=== PATIENT | female | born 1945 | race Caucasian/White ===

== ENCOUNTER 2017-07-08 23:33 | Emergency (ER) | payer MEDICARE, BC ==
[2015-02-02 00:06] VITALS: BMI 35.0
[~2017-07-08 23:33] MED LIST: BAYER CHEWABLE81 MG PO; DYAZIDE 37.5/251 CAP PO; ESTRACE 0.5 MG0.5 MG PO; METOPROLOL TART50 MG PO; PLAVIX75 MG PO; ZOCOR40 MG PO
== END 2017-07-09 00:10 | disposition home or self-care (01) ==
LOC: D.ER 23:33
DX: I48.91 Unspecified atrial fibrillation (principal); Z95.0 Presence of cardiac pacemaker

== ENCOUNTER → 2019-01-14 09:32 | Outpatient (CLI) | payer MEDICARE, BC ==
[2015-02-02 00:06] VITALS: BMI 35.0
--- NOTE | 2019-01-16 14:51 | EC ---
PATIENT:MINDY HUFFMAN DATE OF SERVICE: 01/14/19 SEX: F MEDICAL RECORD: [id number] DATE OF : 45 LOCATION:D[facility] AGE OF PATIENT: 73 ADMISSION DATE: 01/14/19 REFERRING PHYSICIAN: INTERPRETING PHYSICIAN: LAZARO ARREOLA MD ECHOCARDIOGRAM REPORT ECHO CHARGES 4 ECHO COMPLETE Date: 01/14/19 CLINICAL DIAGNOSIS: AFIB, HX OF TR,MR,AI,PI,PACER,HTN ECHOCARDIOGRAPHIC MEASUREMENTS (adult normal given) AC root (d.<3.7cm) 3.7 cm LV Septum d (<1.2 cm> 1.7 cm Valve Excursion 1.2 cm LV Septum (systole) 2.2 cm Left Atria (s.<4.0cm> 4.7 cm LVPW d(<1.2cm) 1.8 cm RV (d.<2.3cm) 3.7 cm LVPW (sytole) 2.2 cm LV diastole(<5.6CM) 5.4 cm MV E-F(>70mm/sec) cm LV systole 3.5 cm LVOT Diameter 1.9 cm MV exc.(>10mm) 1.6 cm Est.ejection fraction (50-75%) % DOPPLER: LVIT cm/sec A 48.0 cm/sec E 78.0 cm/sec LA cm/sec RVSP 16 mmHg LVOT 103 cm/sec AOP1/2T 442 m/s Asc. Ao 133 cm/sec RVOT 86 cm/sec RA cm/sec PA 100 cm/sec AV Gradient Peak 7.02 mmHg AV Mean 3.13 mmHg AV Area 2.5 cm MV Gradient Peak 4.42 mmHg MV Mean 1.64 mmHg MV Area cm COMMENTS: Small Battery Plate Assembler: 2 TEVIN MG Waste Management Engineer: 3 Dr. Ovalle TAPE# PACS Pericardial Effusion N DATE OF SERVICE: Adequate 2D echo, color flow, spectral Doppler, and M-mode. LVH is present. LV internal dimensions are normal. Wall motion is normal. EF is greater than or equal to 55%. Aortic valve is tricuspid. No evidence of stenosis by Doppler interrogation. Left atrium is normal. Mitral valve shows no prolapse. Trace MR. Right-sided chambers grossly normal. Trace TR. TRANSINT:[id number] Voice Confirmation ID: [id number] DOCUMENT ID: [id number] ECHOCARDIOGRAM REPORT [id number] MINDY HUFFMAN,LAZARO Kirkpatrick MD at 1451 CC: [id number] DICTATION DATE: 01/15/19 1418 MACHINE PRECISION ETCHER: 01/15/19 1600 DEP CLI 01/14/19 [place] [id number]
== END | disposition home or self-care (01) ==
LOC: D.HCCARDIO 09:32
PROVIDERS: ATTEND Internal Medicine Interventional Cardiology
DX: I48.91 Unspecified atrial fibrillation (principal)

== ENCOUNTER → 2019-01-30 10:59 | Outpatient (CLI) | payer MEDICARE, BC ==
[2015-02-02 00:06] VITALS: BMI 35.0
== END | disposition home or self-care (01) ==
LOC: D.US 10:59
PROVIDERS: ATTEND Internal Medicine Interventional Cardiology
DX: R42 Dizziness and giddiness (principal)

== ENCOUNTER → 2019-03-14 07:56 | Outpatient (CLI) | payer MEDICARE, BC | END | disposition home or self-care (01) | LOC: D.CT 07:56 | DX: R42 Dizziness and giddiness (principal); R93.89 Abnormal findings on diagnostic imaging of other specified body structures ==

== ENCOUNTER 2019-10-30 11:46 | Emergency (ER) | payer MEDICARE, BC ==
[~2019-10-30] VITALS: Ht 167.6 cm; Wt 78.2 kg
[2019-10-30 11:56] VITALS: Ht 167.6 cm; Wt 78.2 kg
[2019-10-30 12:22] LABS: BASOPHILS 2.7 % (0-2); EOSINOPHILS 0.5 % (0-7); HEMATOCRIT 41.9 % (36.0-48.0); HEMOGLOBIN 13.6 g/dL (12-16); IMMATURE GRANULOCYTES 0.7 % (0-5); LYMPHOCYTES 16.1 % (15-50); MCH 29.1 pg (26.0-34.0); MCHC 32.5 g/dL (31.0-37.0); MCV 89.5 fL (80.0-100.0); MEAN PLATELET VOLUME 9.3 fL (7.4-10.4); MONOCYTES 4.9 % (2-11); NEUTROPHILS 75.1 % (40-80); RBC 4.68 10x6/uL (4.00-5.40); RDW 14.5 % (11.5-14.5); WBC 14.6 10x3/uL (4.8-10.8)
[2019-10-30] MEDS ORDERED: BETAPACE 80 MG80 MG PO (12:22)
[2019-10-30] MEDS ORDERED: ZOCOR20 MG PO (12:23)
[2019-10-30 12:36] LABS: CALC OSMOLALITY 280 mosm/kg (275-300); CALCIUM 8.7 mg/dL (8.5-10.1); CHLORIDE - SERUM 101 mmol/L (98-107); CREATININE - SERUM 1.2 mg/dL (0.6-1.3); GLUCOSE 142 mg/dL (74-106); POTASSIUM - SERUM 3.8 mmol/L (3.5-5.1); SODIUM 138 mmol/L (136-145); UREA NITROGEN 20 mg/dL (7-18); eGFR NON AFRICAN AMERICAN 46 mL/min (90-120)
[2019-10-30 12:44] LABS: APTT 36.3 SECONDS (22.8-39.4); INR 1.06 (0.85-1.17); PROTIME 13.7 SECONDS (11.6-15.0)
[2019-10-30 12:50] LABS: ALBUMIN 3.2 g/dL (3.4-5.0); ALKALINE PHOSPHATASE 90 U/L (46-116); ALT (SGPT) 30 U/L (10-68); BILIRUBIN - TOTAL 0.59 mg/dL (0.2-1.3); CKMB 0.8 U/L (0.0-3.6); CREATINE KINASE 31 UL (21-215); MAGNESIUM - SERUM 1.2 mg/dL (1.8-2.4); PROTEIN - SERUM 7.3 g/dL (6.4-8.2); TROPONIN-I < 0.017 ng/mL (0.000-0.060)
[2019-10-30 12:51] LABS: PLATELET COUNT 339 10x3/uL (130-400)
[2019-10-30 13:40] LABS: APPEARANCE CLEAR (CLEAR); BILIRUBIN NEGATIVE (NEGATIVE); COLOR YELLOW (YELLOW); GLUCOSE NEGATIVE (NEGATIVE); KETONE NEGATIVE (NEGATIVE); NITRITE NEGATIVE (NEGATIVE); PROTEIN TRACE mg/dL (NEGATIVE); SPECIFIC GRAVITY 1.015 (1.005-1.020); UROBILINOGEN NORMAL (NORMAL)
[2019-10-30 13:41] LABS: BACTERIA FEW /hpf (NEGATIVE); EPITHELIAL CELL CAST OCC /lpf (NONE SEEN); EPITHELIAL CELLS OCC /hpf (0-5); GRANULAR CAST OCC /lpf (NONE SEEN); RED CELLS - URINE OCC /hpf (0-5)
[2019-10-30] MEDS ORDERED: LEVOFLOXACIN500 MG PO (15:55)
[2019-10-30] MEDS ORDERED: MACROBID100 MG PO (15:55)
[2019-10-30 16:35] VITALS: BP 116/77
== END 2019-10-30 17:36 | disposition home or self-care (01) ==
LOC: D.ER 11:46
PROVIDERS: Family Medicine
DX: R55 Syncope and collapse (principal); I48.0 Paroxysmal atrial fibrillation; D72.829 Elevated white blood cell count, unspecified; R53.81 Other malaise; R53.83 Other fatigue; R00.0 Tachycardia, unspecified; Z95.810 Presence of automatic (implantable) cardiac defibrillator; Z95.1 Presence of aortocoronary bypass graft; I48.91 Unspecified atrial fibrillation; J44.9 Chronic obstructive pulmonary disease, unspecified; K21.9 Gastro-esophageal reflux disease without esophagitis

== ENCOUNTER → 2019-11-04 09:16 | Outpatient (CLI) | payer MEDICARE, BC ==
[2019-10-30 11:56] VITALS: BMI 27.8
--- NOTE | ~2019-11-04 | EC ---
PATIENT:MINDY HUFFMAN DATE OF SERVICE: 11/04/19 SEX: F MEDICAL RECORD: [id number] DATE OF : [birth year] LOCATION:[facility] AGE OF PATIENT: 74 ADMISSION DATE: 11/04/19 REFERRING PHYSICIAN: INTERPRETING PHYSICIAN: LAZARO ARREOLA MD ECHOCARDIOGRAM REPORT ECHO CHARGES 4 ECHO COMPLETE Date: 11/04/19 CLINICAL DIAGNOSIS: SYNCOPE/A-FIB H/O CAD/HTN ECHOCARDIOGRAPHIC MEASUREMENTS (adult normal given) AC root (d.<3.7cm) 3.5 cm LV Septum d (<1.2 cm> 1.6 cm Valve Excursion 1.9 cm LV Septum (systole) 2.2 cm Left Atria (s.<4.0cm> 5.6 cm LVPW d(<1.2cm) 1.3 cm RV (d.<2.3cm) 2.4 cm LVPW (sytole) 1.8 cm LV diastole(<5.6CM) 5.9 cm MV E-F(>70mm/sec) cm LV systole 4.5 cm LVOT Diameter 2.1 cm MV exc.(>10mm) cm Est.ejection fraction (50-75%) % DOPPLER: LVIT cm/sec A 49.0 cm/sec E 65.0 cm/sec LA cm/sec RVSP 38.0 mmHg LVOT 74.0 cm/sec AOP1/2T m/s Asc. Ao 100 cm/sec RVOT 47.0 cm/sec RA cm/sec PA 77.0 cm/sec AV Gradient Peak 3.9 mmHg AV Mean 2.1 mmHg AV Area 1.9 cm MV Gradient Peak 3.6 mmHg MV Mean 1.5 mmHg MV Area cm COMMENTS: OP - HC Field Instructor: 1 DAVIE DANELLE Steward/Stewardess Chief Cargo Vessel: 3 Dr. Ovalle TAPE# PACS Pericardial Effusion N DATE OF SERVICE: Adequate 2-D echo, Color-Flow and Spectral Doppler, and M-mode LVH is present. LV internal dimensions in the upper limits of normal. LV appears to be mildly globally hypo with EF mildly reduced 40% to 45%. Aortic valve is tricuspid. No evidence of stenosis with Doppler interrogation. Trivial AI on color flow imaging. Left atrium is dilated 5.6 cm. Mitral valve shows no prolapse. Trace MR. Right-sided chambers are grossly normal. Moderate TR. ECHOCARDIOGRAM REPORT [id number] MINDY HUFFMAN TRANSINT:[id number] Voice Confirmation ID: [id number] DOCUMENT ID: [id number] LAZARO ARREOLA MD CC: [id number] DICTATION DATE: 11/05/191452 [employer] DIRECTOR: 11/05/191951 DEP CLI 11/04/19 [place] [id number] [place] [id number]
[~2019-11-04 09:16] MED LIST changes: +BETAPACE 80 MG80 MG PO; +LEVOFLOXACIN500 MG PO; +MACROBID100 MG PO; +ZOCOR20 MG PO
== END | disposition home or self-care (01) ==
LOC: D.HCCECHO 09:16
PROVIDERS: ATTEND Internal Medicine Interventional Cardiology
DX: I10 Essential (primary) hypertension (principal)

== ENCOUNTER 2019-11-10 19:33 | Inpatient (IN) | payer MEDICARE, BC ==
[~2019-11-10] VITALS: Ht 167.6 cm; Wt 0.5 kg
[2019-11-10 19:48] VITALS: BP 127/89
[2019-11-10] MEDS ORDERED: ELIQUIS5 MG PO (19:49)
[2019-11-10 19:58] LABS: APPEARANCE CLEAR (CLEAR); BILIRUBIN NEGATIVE (NEGATIVE); COLOR YELLOW (YELLOW); GLUCOSE NEGATIVE (NEGATIVE); KETONE NEGATIVE (NEGATIVE); NITRITE NEGATIVE (NEGATIVE); PROTEIN TRACE mg/dL (NEGATIVE); SPECIFIC GRAVITY 1.015 (1.005-1.020); UROBILINOGEN NORMAL (NORMAL)
[2019-11-10 20:00] LABS: WHITE CELLS - URINE 25-50 /hpf (NEGATIVE)
[2019-11-10 20:01] LABS: BACTERIA MODERATE /hpf (NEGATIVE)
[2019-11-10 20:02] LABS: MUCUS <1+ /lpf (NONE SEEN); RED CELLS - URINE 0-5 /hpf (0-5)
[2019-11-10 20:17] VITALS: BP 135/95
[2019-11-10 20:19] LABS: BASOPHILS 3.3 % (0-2); EOSINOPHILS 1.1 % (0-7); HEMATOCRIT 32.3 % (36.0-48.0); HEMOGLOBIN 10.7 g/dL (12-16); IMMATURE GRANULOCYTES 0.4 % (0-5); LYMPHOCYTES 19.8 % (15-50); MCHC 33.1 g/dL (31.0-37.0); MCV 87.5 fL (80.0-100.0); MONOCYTES 6.5 % (2-11); NEUTROPHILS 68.9 % (40-80); PLATELET COUNT 334 10x3/uL (130-400); RBC 3.69 10x6/uL (4.00-5.40); RDW 14.3 % (11.5-14.5); WBC 13.5 10x3/uL (4.8-10.8)
[2019-11-10 20:27] LABS: APTT 45.9 SECONDS (22.8-39.4); INR 1.22 (0.85-1.17); PROTIME 15.3 SECONDS (11.6-15.0)
[2019-11-10 20:33] LABS: CALC OSMOLALITY 280 mosm/kg (275-300); CALCIUM 8.1 mg/dL (8.5-10.1); CHLORIDE - SERUM 104 mmol/L (98-107); CREATININE - SERUM 1.1 mg/dL (0.6-1.3); GLUCOSE 104 mg/dL (74-106); POTASSIUM - SERUM 3.6 mmol/L (3.5-5.1); SODIUM 138 mmol/L (136-145); UREA NITROGEN 26 mg/dL (7-18); eGFR NON AFRICAN AMERICAN 51 mL/min (90-120)
[2019-11-10 20:44] LABS: ALBUMIN 2.9 g/dL (3.4-5.0); ALKALINE PHOSPHATASE 93 U/L (30-120); ALT (SGPT) 26 U/L (10-68); BILIRUBIN - TOTAL 0.26 mg/dL (0.2-1.3); CKMB 0.5 U/L (0.0-3.6); CREATINE KINASE 33 UL (21-215); MAGNESIUM - SERUM 1.5 mg/dL (1.8-2.4); PROTEIN - SERUM 6.5 g/dL (6.4-8.2); TROPONIN-I 0.021 ng/mL (0.000-0.060)
--- NOTE | 2019-11-10 20:48 | NUR ---
EPR INFORNED PT RATE CHANGED PRIOR TO ADMIN OF IV VERAPMIL, MED NOT GIVEN.
[2019-11-10 20:49] VITALS: BP 83/60
[2019-11-10 21:00] VITALS: BP 127/68
[2019-11-10 21:30] VITALS: BP 114/30
[2019-11-10 22:15] VITALS: BP 116/73
--- NOTE | 2019-11-10 23:00 | NUR ---
RECEIVED REPORT FROM VLADISLAV RN (ER), [facility], HISTORY AND MEDS REVIEWED. PLACED ON [id number], [id number], PROVIDED A DRINK AND SANDWICH, BED IS LOW, SRX1, CALL LIGHT IN REACH, DAUGHTER AT BEDSIDE, WILL CONTINUE PLAN OF CARE
[2019-11-11] VITALS: BP 103/58
[2019-11-11 03:27] LABS: CKMB 1.1 U/L (0.0-3.6); CREATINE KINASE 63 UL (21-215); TROPONIN-I 0.017 ng/mL (0.000-0.060)
[2019-11-11 04:00] VITALS: BP 99/50
[2019-11-11 04:56] VITALS: BP 103/58
[2019-11-11 08:29] LABS: CKMB 1.7 U/L (0.0-3.6); CREATINE KINASE 101 UL (21-215); TROPONIN-I < 0.017 ng/mL (0.000-0.060)
[2019-11-11 08:44] LABS: T4 THYROXIN - FREE 1.07 ng/dL (0.76-1.46); THYROID STIMULATING HORMONE 1.5 uIU/mL (0.36-3.74)
[2019-11-11 08:59] VITALS: Ht 167.6 cm; Wt 0.5 kg
--- NOTE | 2019-11-11 09:42 | NUR ---
CALLED DR. RILEY AND INFORMED HIM ABOUT PT HAVING HIP PAIN AND WANTS A MUSCLE RELAXER. ALSO INFOMED HIM ABOUT CARDIOLOGY STATING THAT PT IS STABLE TO DISCHARGE FROM CARDIO STANDPOINT. NEW ORDER FOR LUMBER SPINE SERIES AND TO GET RESULT FROM PREVIOUS UA DONE IN ER ON LAST VISIT.
[2019-11-11 09:54] VITALS: BP 118/42
--- NOTE | 2019-11-11 11:25 | NUR ---
RESULTS FOR LUMBAR SPINE SERIES CALLED IN TO LORENA RILEY NURSE.
--- NOTE | 2019-11-11 11:55 | NUR ---
RECEIVED CALL BACK FROM DR. ROSEMARY CARRILLO'S NURSE. NEW ORDER FOR PT TO D/C HOME ON CURRENT MEDICATIONS AND START MACROBID 100MG BID X7 DAYS FOR UTI. F/U WITH OFFICE IN 1 WEEK.
[2019-11-11] MEDS ORDERED: MACROBID100 MG PO (12:38)
--- NOTE | 2019-11-11 12:43 | NUR ---
PER KIMANI MÉNDEZ APRN. START VERAPAMIL 120MG BID AND STOP METOPROLOL.
[2019-11-11] MEDS ORDERED: VERELAN120 MG PO (12:44)
--- NOTE | 2019-11-11 13:28 | NUR ---
[id number] VERBAL AND WRITTEN DISCHARGE TEACHING TO PT AND DAUGHTER, BOTH VERBALIZED UNDERSTANDING REGARDING TEACHING. D/C RT FA IV WITH CATHETER TIP INTACT. PT WHEELED DOWN TO FRONT DOOR WITH ALL BELONGINGS, ACCOMPANIED BY DAUGHTER, NAD NOTED.
--- NOTE | 2019-11-11 16:49 | MORECARE ---
CASE MANAGEMENT DISCHARGE SUMMARY PATIENT: MINDY HUFFMAN UNIT: [id number] ADM DATE: 11/10/19 AGE: 74 : [birth year] SEX: F ROOM/BED: D.1644 AUTHOR: GEORGEDOC PHYSICIAN: REFERRING PHYSICIAN: ANUSHKA RILEY MD DATE OF SERVICE: 11/11/19 Discharge Plan Patient Name: MINDY HUFFMAN Facility: [facility]:[place] : 1945 Planned Disposition: Home Anticipated Discharge Date: 11/11/19 Discharge Date: 11/11/2019 Expected LOS: 1 Initial Reviewer: [id number] Initial Review Date: 11/11/2019 Generated: 11/11/19 5:49 pm Comments DCP- Discharge Planning Updated by [email or web address]: Dallas Barron on 11/11/19 3:[address] Patient Name: MINDY HUFFMAN Admission Status: ER Accout number: [id number] Admission Date: 11-10-2019 : 1945 Admission Diagnosis: Attending: ANUSHKA RILEY Current LOS: 1 Anticipated DC Date: 11-11-2019 Planned Disposition: Home Primary Insurance: MEDICARE A & B Discharge Planning Comments: CM MET WITH PT IN ROOM TO DISCUSS DISCHARGE PLANNING AND NEEDS. PT REPORTS LIVING AT HOME INDEPENDENTLY WITH HER SPOUSE. PT HAS NO MEDICAL EQUIPMENT AND NO OUTSIDE SERVICES ASSISTING IN THE HOME. CM DISCUSSED AVAILABILITY OF HOME HEALTH, REHAB SERVICES AND MEDICAL EQUIPMENT. PT DENIES DISCHARGE NEEDS, REPORTS HER SPOUSE WILL PICK HER UP FOR DISCHARGE HOME. IMPORTANT MESSAGE FROM MEDICARE PROVIDED AND EXPLAINED. Facilities Clerk: Dallas Barron DCPIA - Discharge Planning Initial Assessment Updated by [id number]: Dallas Barron on 11/11/19 4:42 pm * Is the patient Alert and Oriented? Yes * How many steps to enter\exit or inside your home? * PCP DR. RILEY * Pharmacy [facility] [address] * Preadmission Environment Home with Family * ADLs Independent * Equipment None * Other Equipment NO MEDICAL EQUIPMENT PROVIDER PREFERENCE * List name and contact numbers for known caregivers / representatives who currently or will assist patient after discharge: YANIRA HUFFMAN, SPOUSE, * Verbal permission to speak to the caregivers and representatives has been obtained from the patient. N/A * Community resources currently utilized None * Please name any agencies selected above. NONE * Additional services required to return to the preadmission environment? No * Can the patient safely return to the preadmission environment? Yes * Has this patient been hospitalized within the prior 30 days at any hospital? No Coverage Notice Reviewer: [id number] Wanda Barron Notice Issued Date-Time: 11/11/2019 12:20 Notice Type: IM Discharge Notice Notice Delivered To: Patient Relationship to Patient: Apprentice Cook Name: Delivery Method: HAND - Hand Delivered Kassie Days: Prior Verbal Notification: Recipient Understood Notice: Yes Recipient Signature: Yes Med Rec Note Co-signed by Attending: Coverage Notice Comment: Patient Name: MINDY HUFFMAN Page [id number] at 1649 All edits/amendments must be made on the electronic document DICTATION DATE: 11/11/191648 [employer] FORMER SUPERVISOR: BENITEZ 11/11/191648 RPT#: [id number] DC DATE:11/11/19 STATUS: DIS IN [facility] [address] [place] [address] END OF REPORT
--- NOTE | 2019-11-17 16:00 | HP ---
PATIENT: MINDY HUFFMAN MEDICAL RECORD: [id number] ACCOUNT: [id number] LOCATION:[address] : [birth year] ADMISSION DATE: 11/10/19 PCP: ANUSHKA RILEY MD HISTORY AND PHYSICAL EXAMINATION REASON FOR ADMISSION: Shortness of breath with fast heart rate. HISTORY OF PRESENT ILLNESS: The patient is a 74-year-old female with history of intermittent atrial fibrillation, sick sinus syndrome and coronary artery disease. She apparently had a syncopal episode on October 30 of this year at home, was brought in by ambulance. She was in sinus rhythm, rate of 112 at that time, was seen by cardiology. Her sotalol was increased by half a tab b.i.d. and she was placed on metoprolol. She also had a UTI at that time. She was discharged on nitrofurantoin and Levaquin. She had follow up with cardiology and medications were adjusted. She has been having some intermittent fast heart rates since last night, had increasing symptoms of palpitations. Her daughter, who is a nurse, felt pulse in excess of 150 beats a minute and irregular. She had recently been increased sotalol to 120 mg every 12 hours and metoprolol 25 mg daily. She is post-CABG and has 2 stents in the past as well as pacemaker placement. On arrival to the ED, her pulse was in sinus rhythm at 86 with temperature 98.4, blood pressure 130/78. EKG showed old inferior CT, AFib with RVR. Second EKG one hour after p.o. diltiazem rate was 71, she to became hypotensive. For that reason, she has been now readmitted to the hospital. Denies any recent severe chest pain with positive dyspnea on exertion. PAST MEDICAL HISTORY: CAD post-CABG and stents, atrial fibrillation, sick sinus syndrome last echo with EF 40% to 45% and global hypokinesis. Urinary tract infection, aortic stent graft, peripheral vascular disease with stents in both lower extremities, COPD, GERD. PAST SURGICAL HISTORY: CABG, multiple stent placement as above, bladder suspension, hysterectomy. FAMILY HISTORY: Parents , had hypertension. SOCIAL HISTORY: Smoking history. No alcohol use. CURRENT MEDICATIONS: Sotalol 120 mg b.i.d., Eliquis 5 mg p.o. daily, Plavix 75 mg p.o. daily, metoprolol tartrate 25 mg p.o. daily, Zocor 20 mg with evening meal, aspirin 81 mg a day, triamterene 1 p.o. every morning. ALLERGIES: KEFLEX CAUSING HIVES. PHYSICAL EXAMINATION: VITAL SIGNS: Temperature 98.4 Fahrenheit, pulse 86 and regular, respirations 20, blood pressure 130/70, O2 sat 99% on room air. HEAD: Normocephalic. EYES: Clear. NECK: No bruits appreciated. CHEST: Distant breath sounds without wheezes or rales. HEART: Currently regular rate without gallop. ABDOMEN: Soft, nontender. EXTREMITIES: No CC&E. MUSCULOSKELETAL: She has lumbago with mild sciatica on the left leg at 45 HISTORY AND PHYSICAL [id number] HUFFMAN,MINDY J degrees. INTEGUMENT: Shows multiple bruises on her forearms. POWER REACTOR OPERATOR: Deferred. NEUROLOGIC: The patient oriented to person, place and time. No obvious motor or sensory deficits. Gait was not tested. LABORATORY DATA: EKG shows AFib with RVR, old inferior CT. BMP is normal. Magnesium was low at 1.5, replaced in the ED. Cardiac enzymes are negative times 1. H&H of 10.7 and 32.3 respectively. UA shows pyuria and bacteriuria. Chest x-ray shows no acute cardiopulmonary disease, coronary stents are seen on the inferior right heart border. IMPRESSION: 1. Paroxysmal atrial fibrillation with rapid ventricular response, symptomatic. 2. Coronary artery disease. 3. Urinary tract infection. 4. Hyperlipidemia. 5. Sick sinus syndrome, pacemaker, peripheral vascular disease, recent melena, on Eliquis. PLAN: The patient is currently in sinus rhythm. Continue to monitor. Cardiology consult. We will need to decide which is the safest anticoagulant for her, we will add a PPI at this time. Further workup pending clinical course. TRANSINT:[id number] Voice Confirmation ID: [id number] DOCUMENT ID: [id number] ANUSHKA RILEY MD at 1600 CC: [id number] DICTATION DATE: 11/11/19 0756 PREFITTER: 11/11/19 1104 DIS IN 11/11/19 [facility] [address] [place] [address]
== END 2019-11-11 13:36 | disposition home or self-care (01) | DRG 309 ==
LOC: D.ER 19:33 → D.M2 21:19
PROVIDERS: Emergency Medicine; ADMIT Family Medicine; ATTEND Family Medicine
DX: I48.0 Paroxysmal atrial fibrillation (principal); N39.0 Urinary tract infection, site not specified; I25.10 Atherosclerotic heart disease of native coronary artery without angina pectoris; E78.5 Hyperlipidemia, unspecified; I73.9 Peripheral vascular disease, unspecified; K21.9 Gastro-esophageal reflux disease without esophagitis; J44.9 Chronic obstructive pulmonary disease, unspecified; I42.9 Cardiomyopathy, unspecified; M54.42 Lumbago with sciatica, left side; Z95.0 Presence of cardiac pacemaker; Z87.891 Personal history of nicotine dependence

== ENCOUNTER 2020-01-08 11:16 | Outpatient (CLI) | payer MEDICARE, BC ==
[~2020-01-08] VITALS: Ht 167.6 cm; Wt 75.0 kg
--- NOTE | ~2020-01-08 | HEMODYNAMI ---
PATIENT:MINDY HUFFMAN MEDICAL RECORD: [id number] : 45 [place]:[facility] ADMISSION DATE: 01/08/20 Generatedon:01/08/202014:39 Patient name: MINDY HUFFMAN Patient #: [id number] SSN: [id number] : 1945 Date of study: 01/08/2020 Page: Of Hemodynamic Procedure Report Patient Data Patient Demographics Procedure consent was obtained First Name: MINDY Gender: Female Last Name: ARMIDA : 1945 Middle Initial: J Age: 74 year(s) Patient #: [id number] Race: Unknown SSN: [id number] Additional ID: [id number] Contact details Address: [address] [place] [address] [employer] State: [place] City: [place] Zip code: [address] Past Medical History Allergies Allergen Reaction Date Comments Reported Other allergy 01/08/2020 Keflex, Simvastatin Admission Admission Data Admission Date: 01/08/2020 Admission Time: 11:16 Arrival Date: 01/08/2020 Arrival Time: 0:00 Admit Source: Other Insurance Payor: Medicare, Private health insurance HIC #: [id number] Height (in.): 65.75 BSA: 1.84 (m2) Height (cm.): 167 BMI: 26.89 (kg/m2) Weight (lbs.): 165.35 Weight (kg.): 75 Lab Results Lab Result Date: 01/08/2020 Lab Result Time: 0:00 Biochemistry Name Units Result Min Max BUN mg/dl 19 --(----)*- 7 18 Creatinine mg/dl 1.3 --(---*)-- 0.6 1.3 eGFR ml/min 42 *-(----)-- 90 120 NONAFRICAN CBC Name Units Result Min Max Hemoglobin g/dl 11.1 *-(----)-- 13.5 17.5 Procedure Procedure Types Cath Procedure Diagnostic Procedure [facility] w/Coronaries w/Grafts Aortic Root Angiography Sedation Charges Moderate Sedation up to 30 minutes PCI Procedure AMI/SVG/TRUCK DRIVER HELPER PTCA or Stent SVG-BMS/DORIS Initial Hemochron ACT Test Procedure Description Procedure Date Procedure Date: 01/08/2020 Procedure Start Time: 13:51 Procedure End Time: 14:35 Procedure Staff Name Function Bashir Alvarez MD Performing Physician Destinee Barraza RT Monitor Debra Mccray RT Scrub Katie Cortes RN Nurse Procedure Data Cath Procedure Fluoroscopy Diagnostic fluoroscopy Total fluoroscopy Time: 8.4 time: 8.4 min min Diagnostic fluoroscopy Total fluoroscopy dose: 991 dose: 991 mGy mGy Contrast Material Contrast Material Type Amount (ml) Isovue 300 148 Entry Location Entry Primary Successful Side Size Upsize Upsize 2 Entry Closure S uccessful Closure Location (Fr) 1 (Fr) (Fr) Remarks Device Remarks Femoral Right 4 Fr 5 Fr 6 Fr exchanged Exoseal artery Mid-Length with amplatz wire Estimated blood loss: 10 ml Diagnostic catheters Device Type Used For End Catheter Placement MULTIPACK JL 4.0 5Fr Procedure catheter MULTIPACK 3DRC 5Fr Procedure catheter MULTIPACK Pigtail 5 Fr Ventriculography catheter Procedure Complications No complications Procedure Medications Medication Administration Route Dosage Oxygen etCO2 Nasal cannula 2 l/min Lidocaine 2% added to field 20 Heparin Flush Bag added to field 2 bags (1000units/500ml NS) 0.9% NaCl I.V. 100 ml/hr Versed I.V. 1 mg Fentanyl I.V. 50 mcg Versed I.V. 1 mg Fentanyl I.V. 50 mcg Versed I.V. 1 mg Versed I.V. 1 mg Fentanyl I.V. 50 mcg Heparin Bolus I.V. 4000 units Fentanyl I.V. 50 mcg Hemodynamics Rest BSA: 1.84 (m2) HGB: 11.1 (g/dl) O2 Consumption: Estimated: 160.84 (ml/min) O2 Co nsumption indexed: Estimated:87.41 (ml/min/m) Heart Rate: 60 (bpm) Pressure Samples Time Site Value (mmHg) Purpose Heart Use Rate(bpm) 14:05 LV 116/9,13 Snapshot 64 14:05 AO 116/57(83) Pullback 61 14:05 LV 113/17,58 Pullback 61 Gradients Valve Time Site 1 Site 2 Mean SEP/DFP Peak To Heart Use (mmHg) (sec/min) Peak Rate (mmHg) (bpm) Aortic 14:05 LV AO 0 9 0 61 113/17,58 116/57(83) Calculations Valve P-P Mean Valve Index Valve Source Name Gradient Area Flow (cm2) Aortic 0 0 0 0 Snapshots Pre Cath Intra NCS Post Cath Vital Signs Time Heart Resp SPO2 etCO2 NIBP (mmHg) Rhythm Pain Sedation Rate (ipm) (%) (mmHg) Status Level (bpm) 13:36:00 60 22 94 0 147/68(103) NSR 0 (11) 10(A) , No pain 13:40:16 58 17 98 23.2 131/68(110) NSR 0 (11) 10(A) , No pain 13:44:32 60 15 94 0 120/61(81) NSR 0 (11) 10(A) , No pain 13:48:44 60 14 99 9.7 130/58(100) NSR 0 (11) 9(A) , No pain 13:53:00 61 13 100 14.2 135/63(110) NSR 0 (11) 9(A) , No pain 13:57:18 59 14 100 0 123/60(97) NSR 0 (11) 9(A) , No pain 14:01:30 60 15 97 13.4 132/63(113) NSR 0 (11) 9(A) , No pain 14:05:46 61 15 100 1.4 118/61(88) NSR 0 (11) 9(A) , No pain 14:09:58 59 15 97 8.9 128/58(99) NSR 0 (11) 9(A) , No pain 14:14:16 60 11 99 8.9 121/55(95) NSR 0 (11) 9(A) , No pain 14:19:15 59 12 93 2.9 112/54(85) NSR 0 (11) 9(A) , No pain 14:23:26 60 11 95 0 114/55(87) NSR 0 (11) 9(A) , No pain 14:27:37 60 24 95 0.7 110/54(83) NSR 0 (11) 9(A) , No pain 14:32:36 63 17 100 29.9 Measuring NSR 0 (11) 9(A) , No pain 14:32:53 65 15 100 32.2 112/52(101) NSR 0 (11) 10(A) , No pain Medications Time Medication Route Dose Verified Delivered Reason Notes Effectiveness by by 13:38:37 Oxygen etCO2 2 Bashir Buffie used for Nasal l/min St Shadi Cortes RN procedure cannula 13:38:45 Lidocaine 2% added 20ml Bashir Bashir for local to vial [facility] anesthetic field MD GARCIA 13:38:56 Heparin Flush added 2 Bashir Bashir used for Bag to bags [facility] procedure (1000units/500ml field MD GARCIA NS) 13:39:04 0.9% NaCl I.V. 100 Bashir Buffie Per physician ml/hr St Shadi Cortes RN, MD 13:43:46 Versed I.V. 1 mg Bashir Buffie for sedation St Shadi Cortes RN, MD 13:43:51 Fentanyl I.V. 50 Bashir Buffie for sedation mariah Alicia RN, MD 13:47:31 Versed I.V. 1 mg Bashir Buffie for sedation St Shadi Cortes RN, MD 13:47:34 Fentanyl I.V. 50 Bashir Buffie for sedation mcg St Shadi Cortes RN, MD 13:51:21 Versed I.V. 1 mg Bashir Buffie for sedation St Shadi Cortes RN, MD 14:02:15 Versed I.V. 1 mg Bashir Buffie for sedation St Shadi Cortes RN, MD 14:11:35 Fentanyl I.V. 50 Bashir Buffie for sedation mariah Alicia RN, MD 14:15:06 Heparin Bolus I.V. 4000 Bashir Buffie for verif ied units St Shadi Cortes RN anticoagulation with dr MD kasper 14:34:03 Fentanyl I.V. 50 Bashir Buffie for sedation for mcg St Shadi peralta MD pain Procedure Log Time Note 13:21:12 Diagnostic Cath Status : Elective 13:21:35 Debra Mccray RT(R) sent for patient. Start room use. 13:21:35 Time tracking: Regular hours (M-F 7:00 - 5:00) 13:21:39 Plan of Care:Hemodynamics will remain stable., Cardiac rhythm will remain stable., Comfort level will be maintained., Respiratory function will remain adequate., Patient/ family verbilizes understanding of procedure., Procedure tolerated without complication., Recovers from procedure without complications.. 13:23:33 Patient received from Pre/Post Procedure Room to CCL 2 Alert and oriented. Tansferred to table in Supine position. 13:23:36 Signed procedure consent form obtained from patient. 13:23:37 Warm blankets applied, and aubrey hugger turned on for patient comfort. 13:23:38 Correct patient and procedure confirmed by team. 13:23:51 H&P Date Dictated: 01/06/2020 Within 30 days and on chart., H&P Addendum completed by physician on day of procedure. (MUST COMPLETE FOR ALL OUTPATIENTS). 13:23:53 Pre-procedure instructions explained to patient. 13:23:55 Family in waiting room. 13:23:57 Patient NPO since Midnight. 13:24:28 Patient allergic to Other allergyKeflex, Simvastatin 13:24:31 Is the patient allergic to Iodine/contrast media? No. 13:24:34 Was the patient premedicated? Yes 13:24:35 Is patient on blood thinner?Yes 13:24:39 ACC The patient was administered the following blood thiners within the last 24 hours: ACCPlavix 13:29:17 Arrival Date: 01/08/2020 12:00:00 AM 13:29:42 Admit Source: Other 13:29:45 Insurance Payor : Private health insurance, Medicare 13:29:53 Patient Height : 65.75 inches 13:30:01 Patient Weight : 165.35 lbs 13:30:52 Lab Result : Creatinine 1.3 mg/dl 13:30:52 Lab Result : BUN 19 mg/dl 13:30:52 Lab Result : Hemoglobin 11.1 g/dl 13:30:52 Lab Result : eGFR NONAFRICAN 42 ml/min 13:31:03 Patient diabetic? No. 13:31:08 Previous problem with sedation/anesthesia? No ? 13:31:26 Patient pain scale 0/10 ?. 13:31:37 IV patent on arrival in left forearm with 0.9% NaCl at KVO. 13:31:41 Lab results completed and on chart. 13:31:47 Right groin area was prepped with chlora-prep and draped in sterile fashion 13:31:48 Alarms reviewed by R. N. 13:31:48 Sharps counted by scrub and verified by [place] 13:34:33 Snore? Unknown 13:34:35 Sleep apnea? No 13:34:41 Dentures? Yes tight 13:34:51 Physician paged 13:34:53 Vital chart was started 13:35:01 Fire Safety Assessment: A--An alcohol-based skin anteseptic being used preoperatively., C--Open oxygen or nitrous oxide is being used., D--An ESU, laser, or fiber-optic light is being used. 13:35:04 Physical assessment completed. ASA score P 2 - A patient with mild systemic disease as per Bashir Alvarez MD. 13:35:10 3b) 30-44 Moderately reduced kidney function. 13:35:15 Maximum allowable contrast dose (3.7 X eGFR X 0.75)116 ml. 13:35:19 Sedation plan: IV Moderate Sedation Medication:Versed, Fentanyl 13:38:37 Oxygen 2 l/min etCO2 Nasal cannula was administered by Katie Cortes RN; used for procedure; Verbal order read back and verified. 13:38:45 Lidocaine 2% 20ml vial added to field was administered by Bashir Alvarez MD; for local anesthetic; Verbal order read back and verified. 13:38:56 Heparin Flush Bag (1000units/500ml NS) 2 bags added to field was administered by Bashir Alvarez MD; used for procedure; Verbal order read back and verified. 13:39:04 0.9% NaCl 100 ml/hr I.V. was administered by Katie Cortes RN; Per physician; Verbal order read back and verified. 13:42:35 Physician arrived 13:42:36 --------ALL STOP TIME OUT------ 13:42:37 Final Timeout: patient, procedure, and site verified with staff and physician. All members of the team are in agreement. 13:42:39 Right groin site verified by team. 13:43:00 Stress Test: no; N/A ? 13:43:17 Baseline sample Acquired. 13:43:17 ECG and BP/O2 sat monitors applied to patient. 13:43:26 Rhythm: sinus rhythm , paced 13:43:29 Full Disclosure recording started 13:43:46 Versed 1 mg I.V. was administered by Buffie Cortes RN; for sedation; Verbal order read back and verified. 13:43:50 Use device set Femoral Dx 13:43:51 Fentanyl 50 mcg I.V. was administered by Katie Cortes RN; for sedation; Verbal order read back and verified. 13:43:53 ACIST Syringe (46717) opened to sterile field. 13:43:53 Bag Decanter (2002S) opened to sterile field. 13:43:54 Medline Cath Pack ([id number]) opened to sterile field. 13:43:55 ACIST Hand Control (84381) opened to sterile field. 13:43:56 ACIST Manifold (77590) opened to sterile field. 13:43:57 DIAGNOSTIC Multipack 5Fr catheter set (SF5097) opened to sterile field. 13:43:58 Tegaderm 4 x 4 (1626W) opened to sterile field. 13:43:59 EXOSEAL 6Fr (EX500) opened to sterile field. 13:44:00 SHEATH 5FR [place] (YNF428) opened to sterile field. 13:44:01 EMERALD Guide Wire (014-151) opened to sterile field. 13:47:31 Versed 1 mg I.V. was administered by Katie Cortes RN; for sedation; Verbal order read back and verified. 13:47:34 Fentanyl 50 mcg I.V. was administered by Katie Cortes RN; for sedation; Verbal order read back and verified. 13:48:50 Procedure started. 13:51:02 Local anesthetic to right femoral artery with Lidocaine 2% by Bashir Alvarez MD.INITIAL ACCESS ONLY 13:51:12 A 4 Fr sheath was inserted into the Right Femoral arteryexchanged with amplatz wire 13:51:21 Versed 1 mg I.V. was administered by Katie Cortes RN; for sedation; Verbal order read back and verified. 13:51:51 J wire advanced. 13:53:45 Sheath upsized to a 5 Fr. 13:54:27 A MULTIPACK JL 4.0 5Fr catheter was advanced over the wire and used for Procedure. 13:54:30 LCA angiography performed. 13:57:58 Catheter removed. 13:58:06 A MULTIPACK 3DRC 5Fr catheter was advanced over the wire and used for Procedure. 13:59:25 RCA angiography performed. 13:59:49 SVG to RCA angiography performed. 14:00:37 RIVERA to LAD angiography performed. 14:02:15 Versed 1 mg I.V. was administered by Katie Cortes RN; for sedation; Verbal order read back and verified. 14:05:08 MP cath inserted for SVG to RCA 14:05:28 Proceeding to intervention. 14:05:45 A MULTIPACK Pigtail 5 Fr catheter was advanced over the wire and used for Ventriculography. 14:05:47 LV gram done using ESPINOZA 14:05:54 EF : 40 % 14:06:02 Aortic Root visualized 14:06:10 Catheter removed. 14:09:07 Proceeding to intervention. 14:09:20 Sheath upsized to a 6 Fr Mid-Length. 14:11:35 Fentanyl 50 mcg I.V. was administered by Katie Cortes RN; for sedation; Verbal order read back and verified. 14:12:40 SHEATH DEST 45CM HS opened to sterile field. 14:12:41 GUIDE 6FR MB 1 catheter (LA6MB1) opened to sterile field. 14:12:42 WHISPER 300cm guide wire ([id number]) opened to sterile field. 14:12:43 SHEATH 6FR [place] (OHX778) opened to sterile field. 14:12:44 INFLATOR Merit BasixCompak (SF2699) opened to sterile field. 14:12:45 AMPLATZ Super Stiff 75cm wire ([id number]) opened to sterile field. 14:13:21 6 Fr MB guide catheter was inserted over the wire 14:13:30 Whisper wire advanced. 14:15:06 Heparin Bolus 4000 units I.V. was administered by Katie Cortes RN; for anticoagulation; verified with dr kasper Verbal order read back and verified. 14:19:12 Inflate balloon Inflation number: 1 A NC EUPHORA 3.0 x 15 balloon ([id number]) was prepped and advanced across the Mid RCA , then inflated to 18 GASTON for 0:23 (min:sec) . 14:20:39 Inflation number: 2 The NC EUPHORA 3.0 x 15 balloon ([id number]) was reinflated across the Mid RCA , to 20 GASTON for 0:24 (min:sec) . 14:24:55 Place stent Inflation Number: 1 A JERRY RX 3.0 x 18 stent ([id number]) was prepped and advanced across the Dist RCA 85. The stent was deployed at 16 GASTON for 0:25 (min:sec) 0. 14::38 Inflation number: 2 The stent balloon was then re-inflated across the Dist RCA 0 to 0 GASTON for 0:00 (min:sec) . 14::53 Inflation number: 3 The stent balloon was then re-inflated across the Dist RCA to 0 GASTON for 0:09 (min:sec) . 14::37 Wire removed. 14::37 Guide catheter removed. 14::55 Catheter removed. unable to cannulate vessel. 14:28:16 Sheath removed intact; hemostasis achieved with Exoseal to the Right Femoral artery. 14:28:21 Procedure ended.(Physican Out) 14::33 Fluoroscopy time 08.40 minutes. 14::37 Fluoroscopy dose: 991 mGy 14:: Flurop Dose total: 991 14::42 Dose Area Product 28360 mGy/cm. 14:28:51 Contrast amount:Isovue 300 148ml. 14::54 Maximum allowable dose exceeded? Yes. 14:28:56 Insertion/operative site no bleeding no hematoma. 14:29:17 Post-op/insertion site Right Femoral artery dressed using a 4 x 4 and Tegaderm. 14:29:22 Post right femoral artery:stable 14:29:25 Post Procedure Pulses reassessed and unchanged 14:29:28 Post-procedure physical assessment completed. ASA score P 2 - A patient with mild systemic disease as per Bashir Alvarez MD. 14:29:31 Post procedure rhythm: unchanged. 14:29:36 Estimated blood loss: 10 ml 14:29:38 Post procedure instruction explained to patient.Patient verbalizes understanding. 14:32:46 Procedure type changed to Cath procedure, Diagnostic procedure, LHC, LHC w/Coronaries w/Grafts, Aortic Root Angiography, Sedation Charges, Moderate Sedation up to 30 minutes, PCI procedure, AMI/SVG/TRUCK DRIVER HELPER PTCA or Stent, SVG-BMS/DORIS Initial, Hemochron ACT Test 14:34:03 Fentanyl 50 mcg I.V. was administered by Katie Cortes RN; for sedation; for femstop pain Verbal order read back and verified. 14:34:07 Procedure and supply charges have been captured, reviewed, submitted and are correct. 14:34:15 Procedure Complication : No complications 14:34:54 Vital chart was stopped 14:34:58 [facility] Findings: MVD- PCI performed (see procedure note) 14:35:06 FEMSTOP Gold (S56621) opened to sterile field. 14:35:09 MICROPUNCTURE 4FR Cook (H97522) opened to sterile field. 14:35:20 Operative report dictated upon procedure completion. 14:35:22 See physician's report for complete and final results. 14:35:24 Report given to Pre/Post Procedure Room. 14:35:26 Patient transfered to Pre/Post Procedure Room with Stretcher. 14:35:29 Procedure ended. 14:35:29 Full Disclosure recording stopped 14:35:37 End room use (Document Last) 14:36:46 ACT drawn and resulted at 257 seconds. (normal therapeutic range 180-240 seconds). Intervention Summary Intervention Notes Time ActionType Lesion and Equipment Used Action# Pressure Duration Attributes 14:19:12 Inflate Mid RCA NC EUPHORA 3.0 1 18 00:23 balloon x 15 balloon ([id number]) 14:20:39 Reinflate Mid RCA NC EUPHORA 3.0 2 20 00:24 balloon x 15 balloon ([id number]) 14:24:55 Place stent Dist RCA JERRY RX 3.0 x 1 16 00:25 18 stent ([id number]) 14:25:38 Reinflate Dist RCA JERRY RX 3.0 x 2 0 00:00 stent 18 stent balloon ([id number]) 14:25:53 Reinflate Dist RCA JERRY RX 3.0 x 3 0 00:09 stent 18 stent balloon ([id number]) Device Usage Item Name Manufacture Quantity Catalog Hospital Part [facility] Lot# / Number Charge Number Stock Stock Serial# Code ACIST Syringe Acist 1 68403 413486 863377 584469 20 (32716) Medical Systems Inc Bag Decanter Microtek 1 687793 21227 014299 5 () Medical Inc. Medline Cath Medline 1 [id number] 444314 54799 565745 5 Pack ([id number]) ACIST Hand Acist 1 80134 253420 453255 751758 5 Control Medical (02357) Systems Inc ACIST Manifold Acist 1 14633 835154 960300 548124 5 (57200) Medical Systems [employer] DIAGNOSTIC Cardinal 1 RQ7279 061225 06478 638809 30 Multipack 5Fr Health catheter set ([id number]) Tegaderm 4 x 4 3M 1 1626W 994995 314991 721412 5 (1626W) EXOSEAL 5Fr Cardinal 1 EX500 594869 085531 214821 10 (EX500) Health SHEATH 5FR Terumo 1 XXL338 162770 031905 432827 5 [place] (WJY365) EMERALD Guide Cardinal 1 502-455 142228 620775 983698 5 Wire (502-455) Health MULTIPACK JL Cardinal 1 454197 5 4.0 5Fr Health catheter MULTIPACK 3DRC Cardinal 1 621800 5 5Fr catheter Health MULTIPACK Cardinal 1 962757 5 Pigtail 5 Fr Health catheter SHEATH DEST Terumo 1 RSR02 795805 652345 0090342 1 45CM HS GUIDE 6FR MB 1 Medtronic 1 LA6MB1 197464 93770 309671 1 catheter (LA6MB1) WHISPER 300cm Syed 1 [id number] 742866 031274 468745 5 guide wire Vascular ([id number]) SHEATH 6FR Terumo 1 SDE993 615029 073381 132625 40 [place] (FXS151) INFLATOR Merit Merit 1 HE0479 373564 307716 492031 15 [facility] (RB5744) AMPLATZ Super [place] 1 [id number] 733786 730326 226889 5 Stiff 75cm Scientific wire ([id number]) NC EUPHORA 3.0 Medtronic 1 [id number] 256425 203546 234247 1 [id number] x 15 balloon ([id number]) JERRY RX 3.0 x Medtronic 1 [id number] 596757 9996564 397913 5 [id number] 18 stent ([id number]) FEMSTOP Gold St Mac 1 Y45150 214818 829913 550185 5 ([id number]) MICROPUNCTURE AudioCaseFiles 1 K41353 605803 097345 335907 5 4FR Qmerce ([id number]) Signature Audit [place] Time Signature Unsigned Intra-Procedure 01/08/2020 Destinee Barraza 2:37:07 PM RT(R) Intra-Procedure 01/08/2020 Katie Cortes RN 2:38:26 PM Intra-Procedure 01/08/2020 Bashir Parker 2:38:59 PM Shadi GARCIA Signatures Performing Physician : Signature : Bashir Alvarez MD Date : Time : Monitor : Destinee Barraza Signature : RT Date : Time : Nurse : Katie Cortes RN Signature : Date : Time : [place] [address] [place] [address]
[~2020-01-08 11:16] MED LIST changes: +ELIQUIS5 MG PO; +VERELAN120 MG PO
[2020-01-08] MEDS ORDERED: PROTONIX20 MG PO (11:46)
[2020-01-08] MEDS ORDERED: FUROSEMIDE20 MG (11:47)
[2020-01-08] MEDS ORDERED: POTASSIUM CHLO10 ME1 PO (11:48)
[2020-01-08 12:01] VITALS: BP 139/67; Ht 167.6 cm; Wt 75.0 kg
[2020-01-08 12:22] LABS: HEMATOCRIT 34.8 % (36.0-48.0); HEMOGLOBIN 11.1 g/dL (12-16); LYMPHOCYTES 20.5 % (15-50); MCH 27.9 pg (26.0-34.0); MCHC 31.9 g/dL (31.0-37.0); MCV 87.4 fL (80.0-100.0); MEAN PLATELET VOLUME 8.8 fL (7.4-10.4); NEUTROPHILS 66.1 % (40-80); PLATELET COUNT 399 10x3/uL (130-400); RBC 3.98 10x6/uL (4.00-5.40); RDW 14.1 % (11.5-14.5); WBC 9.6 10x3/uL (4.8-10.8)
[2020-01-08 12:33] LABS: ANION GAP 10.2 mmol/L (8-16); CALCIUM 8.5 mg/dL (8.5-10.1); CARBON DIOXIDE 32.6 mmol/L (21.0-32.0); CHOL - HDL RATIO 3.2 ratio (2.3-4.1); CREATININE - SERUM 1.3 mg/dL (0.6-1.3); LDL-HDL RATIO 1.7 ratio (1.5-3.5); POTASSIUM - SERUM 3.8 mmol/L (3.5-5.1)
--- NOTE | 2020-01-08 14:50 | NUR ---
PT RECEIVED FROM PRODUCTION OR PLANT ENGINEER VIA STRETCHER FOR RECOVERY. PT DROWSY BUT AWAKE, DENIES CHEST PAIN OR DISCOMFORT. PT PLACED ON CARDIAC MONITORS AND O2 VIA NC AT 2L. HR ATRIAL PACED AT 60, BP 139/61 60, BP 139/61, RR 15, SAT 96. IV PATENT INFUSING VIA L ARM PER ORDERS. R GROIN W FEMSTOP IN PLACE, PLACED IN PRODUCTION OR PLANT ENGINEER DUE TO ACTIVE BLEEDING. PRESSURE AT 78 ON ARRIVAL. LEG PINK AND WARM, PEDAL PULSES AUDIBLE W DOPPLER. NO BLEEDING NOTED AT THIS TIME WILL CONTINUE TO CLOSELY MONITOR. PT GIVEN SIPS OF WATER PER REQUEST. PT INSTRUCTED TO KEEP HEAD ON PILLOW AND LEG STRAIGHT, SHE VERBALIZED UNDERSTANDING. DR ARREOLA IN ROOM SPEAKING W FAMILY REGARDING PROCEDURE RESULTS AND PLAN OF CARE. CALL LIGHT IN REACH
[2020-01-08] MEDS ORDERED: AMIODARONE HCL200 MG PO (15:15)
--- NOTE | 2020-01-08 15:15 | NUR ---
PT RESTING W/O COMPLAINTS. FEMOSTOP TO R GROIN REMAINS IN PLACE NO BLEEDING OR S/S HEMATOMA NOTED. LEG PINK AND WARM. HR 60, BP 136/61, SAT 100. CALL LIGHT IN REACH, FAMILY AT BEDSIDE.
--- NOTE | 2020-01-08 15:46 | NUR ---
PT C/O BACK PAIN PUT A SLIGHT SUPPORT UNDER KNEES. PT RATES PAIN 4/10, ORDERS RECEIVED AND 400MG IBUPROPEN GIVEN PER PT REQUEST. THAT IS WHAT SHE TAKES AT HOME FOR HER BACK PAIN. VSS. NO OTHER NEEDS REQUESTED, CALL LIGHT IN REACH
--- NOTE | 2020-01-08 16:05 | NUR ---
PT RESTING IN SUPINE POSITION. R GROIN W FEMOSTOP IN PLACE, PRESSURE REDUCED TO 50, NO BLEEDING NOTED. LEG PINK AND WARM. PT STATES BACK PAIN SOME BETTER AFTER MEDICATION. DENIES OTHER NEEDS AT THIS TIME. VSS. CALL LIGHT IN REACH. TOLERATING PO SOLIDS, FAMILY GAVE PT HAMBURGER.
--- NOTE | 2020-01-08 16:30 | NUR ---
PT RESTING W EYES CLOSED, NO BLEEDING NOTED AND FEMSTOP REMAINS IN PLACE, LEG PINK AND WARM. VSS. CALL LIGHT IN REACH, DAUGHTER AT BS.
--- NOTE | 2020-01-08 17:01 | NUR ---
FEMOSTOP IN PLACE, REMAINING PRESSURE REMOVED AND LOOSENED THE BELT SLIGHTLY. NO BLEEDING NOTED. HR 60, BP 146/53, RR 17. PT DENIES PAIN OR NEEDS AT THIS TIME. CALL LIGHT REMAINS IN REACH
--- NOTE | 2020-01-08 17:35 | NUR ---
FEMOSTOP REMOVED, NO ACTIVE BLEEDING NOTED. SITE CLEANED AND 4X4 AND LG TEGADERM DRESSING APPLIED. HOB ELEVATED SLIGHTLY. VSS. JOHANN SERVED. CALL LIGHT IN TJ IGLESIAS AT BS.
--- NOTE | 2020-01-08 17:57 | NUR ---
DISCHARGE INSTRUCTIONS REVIEWED W PT AND DAUGHTER, SHE VERBALIZED UNDERSTANDING. PT EATING SANDWICH, DENIES PAIN OR DISCOMFORT. REPORT GIVEN TO Ambreen SANDOVAL RN TO ASSUME PT CARE.
--- NOTE | 2020-01-08 18:20 | NUR ---
RIGHT GROIN DRESSING WITH SMALL AMOUNT OF BLEEDING NOTED. DRESSING REMOVED AND BLOOD OOZING AT SKIN SITE. SMALL AMOUNT. PRESSURE HELD FOR 5 MINUTES. TOLERATED WELL. NEW DRESSING APPLIED.
--- NOTE | 2020-01-08 18:30 | NUR ---
NO BLEEDING NOTED TO RIGHT GROIN DRESSING AT THIS TIME. PIV D/C'D WITH CATH TIP INTACT. TOLERATED WELL. PT UP AND DRESSED. AMBULATED TO RESTROOM AND VOIDED WITHOUT DIFFICULTY.
--- NOTE | 2020-01-08 18:40 | NUR ---
RIGHT GROIN DRESSING C/D/I. NO S/S OF HEMATOMA NOTED. PT TAKEN DOWN TO VEHICLE IN WHEELCHAIR. NO S/S OF DISTRESS NOTED. ALL BELONGINGS AND PAPERWORK IN HAND.
--- NOTE | 2020-01-09 11:53 | OP ---
PATIENT NAME: MINDY HUFFMAN MEDICAL RECORD: [id number] :45 LOCATION:D.[facility] ADMISSION DATE: SURGEON: LAZARO ARREOLA MD DATE OF OPERATION: 01/08/2020 PROCEDURE: Left heart catheterization, right femoral artery approach. CATHETERS: A 5-Malaysian sheath, 5/4 left and right Nelly, 5/4 pig. The procedure was well tolerated. The patient returned to the john, sheath removed. ExoSeal device placed. FINDINGS: Left ventriculography in 30-degree ESPINOZA view shows inferior basilar hypokinesis. Overall, function probably preserved 40% to 45%. CORONARY ANATOMY: LEFT MAIN: Left main is free of disease. LAD: LAD is totally occluded proximal. CIRCUMFLEX: Again is totally occluded, fills via left to left collaterals. RIGHT CORONARY ARTERY: Shows a free stent stenosis of about 80%. This involves the stent itself. RIVERA to LAD is widely patent. IMPRESSION AND PLAN: Intervention to the saphenous vein graft to the right momentarily. DESCRIPTION OF PROCEDURE: A 5-Malaysian sheath was exchanged for a long 6-Malaysian sheath. Extreme tortuosity of the iliacs. Next, a multipurpose guide catheter provided excellent guide catheter support, followed by a 300 cm Whisper wire was placed across tightly occluded saphenous vein graft to the right involving the end-stent and in-stent, both restenosis. Pre-deployment balloon used was a 3.0 noncompliant balloon up to 16 atmospheres. Next, a 3.0 x 18 mm Andres drug-eluting stent inflated up to 14 and 16 atmospheres for 45 seconds. This showed excellent resolution of 80% stenosis, no significant residual. KEE flow was 3 throughout the procedure. Sheath was closed with ExoSeal device. Heparin was used in the lab. TRANSINT:[id number] Voice Confirmation ID: [id number] DOCUMENT ID: [id number] LAZARO ARREOLA MD at 1153 CC: [id number] DICTATION DATE: 01/08/20 1441 PROFESSOR OF EARLY CHILDHOOD EDUCATION: 01/08/20 1718 DEP CLI 01/08/20 [id number] [place] [address]
== END 2020-01-08 18:40 | disposition home or self-care (01) ==
LOC: D.CATH 11:16
PROVIDERS: ATTEND Internal Medicine Interventional Cardiology
DX: I25.10 Atherosclerotic heart disease of native coronary artery without angina pectoris (principal); I25.82 Chronic total occlusion of coronary artery; I47.2 Ventricular tachycardia
CPT/HCPCS: 93459; C9604